=== PATIENT | female | born 1950 | race Caucasian/White ===

== ENCOUNTER 2019-07-28 23:32 | Emergency (ER) | payer MEDICARE, SELFPAY ==
[2019-07-28 23:37] VITALS: PULSE 95; RESP 24; O2SAT 95; BMI 25.9
--- NOTE | 2019-07-29 00:21 | CTR_ITS ---
PROCEDURE INFORMATION: Exam: CT Abdomen And Pelvis Without Contrast Exam date and time: 07/29/2019 12:25 AM Age: 69 years old Clinical indication: Abdominal pain; Generalized; Prior surgery; Surgery type: Hysterectomy; Additional info: Ruq pain TECHNIQUE: Imaging protocol: Computed tomography of the abdomen and pelvis without contrast. Radiation optimization: All CT scans at this facility use at least one of these dose optimization techniques: automated exposure control; mA and/or kV adjustment per patient size (includes targeted exams where dose is matched to clinical indication); or iterative reconstruction. COMPARISON: No relevant prior studies available. RADIATION DOSE METRICS: Total DLP: 672.14 mGy-cm FINDINGS: Lungs: Some consolidation and air bronchograms are seen in the right lung base, findings compatible with chronic atelectasis. Some strandy opacities are present in the left lung base most probably representing atelectasis versus parenchymal or pleural scarring. Liver: Normal. No mass. Gallbladder and bile ducts: Normal. No calcified stones. No ductal dilation. Pancreas: There are strandy opacities surrounding the pancreas compatible with inflammatory changes and pancreatitis. Spleen: Normal. No splenomegaly. Adrenals: Normal. No mass. Kidneys and ureters: There is marked right renal atrophy. A 1 cm hypoattenuation simple appearing cyst is seen on the atrophic right kidney. A 2nd 1.4 cm simple appearing cyst is seen within the atrophic right kidney as well. Stomach and bowel: Diverticula are present on the descending and sigmoid colon. There are no inflammatory changes present to suggest diverticulitis. Appendix: No evidence of appendicitis. Intraperitoneal space: Unremarkable. No free air. No significant fluid collection. Vasculature: Calcifications are seen within the thoracic and abdominal aorta, iliac arteries bilaterally Postoperative changes are again seen within the heavily calcified distal abdominal aorta. Lymph nodes: Unremarkable. No enlarged lymph nodes. Bladder: Unremarkable as visualized. Reproductive: Status post hysterectomy. Bones/joints: Unremarkable. No acute fracture. Soft tissues: Unremarkable. CT/CT abdomen pelvis wo con [id number] IMPRESSION: 1. Diffuse inflammatory changes surround the pancreas compatible with pancreatitis. 2. Diverticulosis of the descending and sigmoid colon 3. Marked right renal atrophy. Two simple appearing cysts are seen within the atrophic right kidney, the largest measuring 1.4 cm. No further workup needed. 4. Probable chronic right basilar atelectasis. COMMENTS: Consistent with the [employer]'s Incidental Findings Committee white paper (J Am Alona Radiol 2018): Any incidental renal lesion less than 1.0 cm or classified as too small to characterize, or any incidental cystic renal lesion characterized as simple-appearing, is likely benign. No follow-up imaging is recommended for these lesions per consensus recommendations based on imaging criteria. Radiation Dose CTDIVOL = (mGy): DLP = 672.14 (mGy-cm)
[2019-07-29 00:49] LABS: Basophils % 0.3 %; Eosinophils # 0.2 10^3/uL (0.0-0.8); Eosinophils % 1.2 %; Hematocrit 42.8 % (37.0-47.0); Hemoglobin 14.2 g/dL (11.5-15.3); Lymphocytes # 1.5 10^3/uL (0.8-4.8); Lymphocytes % 11.3 %; Mean Corpuscular HGB Conc 33.2 g/dL (30.0-36.0); Mean Corpuscular Hemoglobin 28.1 pg (28.0-34.0); Mean Corpuscular Volume 84.6 fL (81-99); Mean Platelet Volume 9.9 fL (7.4-10.4); Monocytes # 0.6 10^3/uL (0.2-0.9); Monocytes % 4.5 %; Neutrophils # 11.1 10^3/uL (1.8-7.7); Neutrophils % 82.1 %; Nucleated Red Blood Cells % 0 %; Platelet Count 274 10^3/cmm (130-400); Red Blood Count 5.06 10^6/uL (4.1-5.3); Red Cell Distribution Width 13.6 % (12.1-15.1); White Blood Count 13.5 10^3/uL (4.0-10.0)
[2019-07-29 01:03] LABS: Alanine Aminotransferase 186 U/L (0-33); Albumin Level 4.6 g/dL (3.5-5.2); Alkaline Phosphatase 292 IU/L (35-105); Anion Gap 20.4 (5-19); Aspartate Amino Transferase 443 U/L (0-32); Blood Urea Nitrogen 15 mg/dL (8-23); Calcium 10.3 mg/dL (8.5-10.5); Carbon Dioxide 24 mmol/L (22-29); Chloride 100 mmol/L (98-107); Globulin 2.7 g/dL (1.3-4.6); Glomerular Filtration Rate 49.5 mL/min (90-130); Glucose 237 mg/dL (65-115); Osmolality Calculated 296 mOsm/kg (285-295); Potassium 3.4 mmol/L (3.5-5.1); Sodium 141 mmol/L (136-145); Total Bilirubin 1.1 mg/dL (0.15-1.2); Total Protein 7.3 g/dL (6.6-8.7)
[2019-07-29] MEDS: ondansetron 2 mg/ML SDV 2 mL 4 MG IVP (01:05)
--- NOTE | 2019-07-29 01:14 | PC.NURSE ---
pt requesting to hold on pain medication until effects of zofran has taken effect. Pt also states she is pain free after vomiting. Dr puri
[2019-07-29 01:37] LABS: C Reactive Protein 6.6 mg/L (0.0-4.9)
--- NOTE | 2019-07-29 02:11 | USR_ITS ---
PROCEDURE INFORMATION: Exam: US Abdomen Limited, Right Upper Quadrant Exam date and time: 07/29/2019 2:57 AM Age: 69 years old Clinical indication: Abdominal pain; Prior surgery; Surgery date: 6+ months; Surgery type: Patient states she had aorta surgery. ; Additional info: Ruq pain, elevated liver enzymes TECHNIQUE: Imaging protocol: Real-time ultrasound of the abdomen with image documentation. Examination was focused on the right upper quadrant. COMPARISON: CT abdomen pelvis con [id number] 07/29/2019 1:36 AM FINDINGS: Liver: Normal. No masses. Gallbladder: The multiple hyperdensities are present within the gallbladder compatible with small gallstones. Common bile duct: Normal. No stones. No dilation. Pancreas: Visualized pancreas is unremarkable. Right kidney: Normal. No mass. No hydronephrosis. Intraperitoneal space: There is extreme epigastric pain. US/US gall bladder [id number] IMPRESSION: Multiple small gallstones and extreme epigastric pain could represent gallstone cholecystitis.
[2019-07-29 02:17] LABS: Add Urine Microscopic? NO
[2019-07-29 02:25] LABS: Bilirubin Urine Neg (NEGATIVE); Blood Urine Neg (Negative); Glucose Urine UA Norm (Normal); Ketones Urine Negative (Negative); Leukocyte Esterase Urine Negative (Negative); Nitrate Urine Negative (Negative); Protein Urine Neg (Negative); Urine Appearance Clear (CLEAR); Urine Color Yellow (Yellow); Urobilinogen Urine Norm (Negative); pH Urine 5 (5-7)
[2019-07-29 03:40] VITALS: RESP 20; O2SAT 100
[2019-07-29] MEDS: fentaNYL 50 mcg/mL INJ 2mL IVP (03:40)
[2019-07-29] MEDS: ketorolac 30 mg/mL INJ IVP (03:45)
--- NOTE | 2019-07-29 03:45 | W.ED.ABDPA2 ---
HPI - Abdominal Pain General: Chief Complaint: Abdominal Pain Stated Complaint: n/v Time Seen by Provider: 07/29/19 00:23 History of Present Illness: HPI narrative: 69-year-old female presents from home with epigastric and right upper quadrant pain. She has had several episodes of vomiting. She has had a couple of episodes of loose stool. No fever. No blood in the vomitus or stool. She states that she still has a gallbladder. Pain started this evening. She last ate around 1 PM. Family members ate the same food without symptoms. MD elicited complaint: abdominal pain Onset (ago): hour(s) Pain Consistency: constant Location: Epigastric and RUQ Severity: severe Quality: cramping and aching Radiation: RUQ and epigastric Migration to: no migration Exacerbating factors: movement Relieving factors: nothing Associated Symptoms: Reports chills, diarrhea, nausea and vomiting; Denies dysuria, fever(s), hematochezia and hematuria Review of Systems Const: Reports: chills; Denies: fever(s) Eyes: Denies: change in vision ENMT: Denies: swelling of lips/tongue, change in hearing, post nasal drip or sinus pain Card: Denies: chest pain, palpitations or irregular heart rhythm Resp: Denies: dyspnea, productive cough, non-productive cough or wheezing GI: Reports: nausea, vomiting and diarrhea; Denies: hematochezia : Denies: dysuria, urinary frequency, urinary urgency or hematuria Musc: Denies: neck pain, back pain or joint redness Skin/Breast: Denies: rash, pruritus or erythema Neuro: Denies: headache(s), dizziness or vertigo Psych: Denies: anxiety PFSH ED PFSH: Medical History Carotid stenosis Chronic diarrhea Dyspareunia in female Not responding to replens--- She did very well with the speculum and bimanual exam today No evidence of BV, the we discussed the relationship between bacterial overgrowth and post menopause. We also discussed the role that estrogen plays on the vaginal tissues which provides the tissue with elasticity. We discussed that after menopause the tissues will decline in their elasticity and leave them rigid yet very fragile and intercourse can cause microscopic tearing. Usual course of treatment discussed;she was encouraged to give this a good 3 month trial as it does take generally 12 weeks of therapy before any real improvement is noted. Continue with Estrace with change in directions----> ESTRACE 1 gram in the vagina twice a week--- space out doses use COCONUT OIL as a lubricant--- any time you will be sexually active Gout Hypercholesteremia Hypertension Peripheral arterial disease Recurrent UTI Single kidney Statin intolerance Surgical History History of colonoscopy normal History of hysterectomy YOHANA/BSO--performed in [place] due to bleeding issues S/P PDA repair Family History Father at early age of unknown cause Mother Melanoma Denies family history of Anesthesia complication Bleeding disorder Social History Smoking and tobacco status: never smoked Alcohol intake: never Household members: spouse Marital status: Current occupational status: retired Physical Exam Const: GENERAL APPEARANCE: well developed ORIENTATION/CONSCIOUSNESS: Yes oriented to person, Yes oriented to place and Yes oriented to time HENMT: COMMON NORMALS: normocephalic, external ears normal and Normal external nose present HEAD & SCALP: normocephalic; no scalp tenderness FACE & SINUS: normal facial exam NOSE: Normal external nose present and No nasal discharge present EXTERNAL EAR: Yes external ears normal MOUTH: tongue normal TEETH & GINGIVA: no abnormal tooth and associated gingiva THROAT: posterior oropharynx normal; no peritonsillar mass Eye: COMMON NORMALS: Equal, round and reactive pupils present, EOMs intact bilaterally and conjunctivae normal EYELID: eyelids normal CONJUNCTIVA: Yes conjunctivae normal PUPIL: Yes Equal, round and reactive pupils present Neck/C-Spine: COMMON NORMALS: full ROM GENERAL: No tracheal deviation Chest: COMMONS NORMALS: normal inspection of the chest CHEST: No tenderness Resp: COMMON NORMALS: clear to auscultation bilaterally EFFORT & INSPECTION: No tachypneic, No respiratory distress, No retractions, No uses accessory muscles and No tracheal deviation AUSCULTATION: clear to auscultation bilaterally, no rhonchi, no wheezes and lung sounds not diminished Cardio: COMMON NORMALS: regular rate and regular rhythm RATE: regular rate RHYTHM: regular rhythm HEART SOUNDS: no murmurs PERIPHERAL PULSES: radial pulses present GI: INSPECTION: No abdominal distension AUSCULTATION: No Hyperactive bowel sounds present and No Hypoactive bowel sounds present PALPATION: Yes Tenderness to palpation present (GI) Details: RUQ, Yes Guarding due to palpation present (GI) and No Rigid due to palpation PERCUSSION: no dullness to percussion and no tympanic to percussion : COMMON NORMALS: Yes no CVA tenderness BLADDER/KIDNEY EXAM: Yes no CVA tenderness Back/Pelvis: COMMON NORMALS: no CVA tenderness Neuro: SENSORIUM/ORIENTATION: Yes oriented to person, Yes oriented to place and Yes oriented to time Psych: COMMON NORMALS: mental status grossly normal Skin: COMMON NORMALS: no rashes or lesions noted GENERAL SKIN EXAM: no rashes or lesions noted Course Vital Signs: Vital signs: Vital Signs Pulse Rate 95 07/28/19 23:37 Respiratory Rate 20 H 07/29/19 03:40 Pulse Oximetry 100 07/29/19 03:40 MDM - Abdominal Pain MDM Narrative: Medical decision making narrative: Epigastric and right upper quadrant pain in a 69-year-old female with a leukocytosis of 13.5, mild to moderate elevation in her liver enzymes, and a lipase of greater than 19,000. CT scan shows a normal-appearing gallbladder with normal bile ducts. Ultrasound shows some tiny gallstones, but again with no definite wall thickening and no definite ductal dilatation. She is gotten some fluid, pain medication and antiemetic, and is feeling better. Spoke to my hospitalist. With this type of lipase elevation, with questionable gallbladder findings, feel that GI consultation is needed for possible MRCP versus ERCP. Spoke with [facility] in [facility], they will take in transfer to their emergency department to further triage which service the patient should go to. Lab Data: Labs: Lab Results 07/29/19 07/29/19 07/29/19 Range/Units 00:37 00:37 01:45 WBC 13.5 H (4.0-10.0) 10^3/ uL RBC 5.06 (4.1-5.3) 10^6/u L Hgb 14.2 (11.5-15.3) g/dL Hct 42.8 (37.0-47.0) % MCV 84.6 (81-99) fL MCH 28.1 (28.0-34.0) pg MCHC 33.2 (30.0-36.0) g/dL RDW 13.6 (12.1-15.1) % Plt Count 274 (130-400) 10^3/c mm MPV 9.9 (7.4-10.4) fL Neut % (Auto) 82.1 % Lymph % (Auto) 11.3 % [place] % (Auto) 4.5 % Eos % (Auto) 1.2 % Baso % (Auto) 0.3 % Neut # (Auto) 11.1 H (1.8-7.7) 10^3/u L Lymph # (Auto) 1.5 (0.8-4.8) 10^3/u L [place] # (Auto) 0.6 (0.2-0.9) 10^3/u L Eos # (Auto) 0.2 (0.0-0.8) 10^3/u L Baso # (Auto) 0.0 (0.0-0.1) 10^3/u L Nucleated RBC % (a uto) 0 % Nucleated RBCs # 0.0 /100WBC Sodium 141 (136-145) mmol/L Potassium 3.4 L (3.5-5.1) mmol/L Chloride 100 (98-107) mmol/L Carbon Dioxide 24 (22-29) mmol/L Anion Gap 20.4 H (5-19) BUN 15 (8-23) mg/dL Creatinine 1.1 H (0.5-0.9) mg/dL GFR Calculation 49.5 L (90-130) mL/min Glucose 237 H (65-115) mg/dL Calculated Osmolal ity 296 H (285-295) mOsm/k g Calcium 10.3 (8.5-10.5) mg/dL Total Bilirubin 1.1 (0.15-1.2) mg/dL AST 443 H (0-32) U/L ALT 186 H (0-33) U/L Alkaline Phosphata se 292 H (35-105) IU/L C-Reactive Protein 6.6 H (0.0-4.9) mg/L Total Protein 7.3 (6.6-8.7) g/dL Albumin 4.6 (3.5-5.2) g/dL Globulin 2.7 (1.3-4.6) g/dL Lipase > 11803 H (13-60) U/L Urine Color Yellow (Yellow) Urine Appearance Clear (CLEAR) Urine pH 5 (5-7) Ur Specific Gravit y 1.010 (1.005-1.030) Urine Protein Neg (Negative) Urine Glucose (UA) Norm (Normal) Urine Ketones Negative (Negative) Urine Blood Neg (Negative) Urine Nitrate Negative (Negative) Urine Bilirubin Neg (NEGATIVE) Urine Urobilinogen Norm (Negative) mg/dL Ur Leukocyte Orly ase Negative (Negative) Discharge Plan Discharge Prescriptions: No Action escitalopram oxalate [Lexapro] 10 mg tablet 10 mg PO QDAY RF: 0 Symbicort 160-4.5 mcg/actuation HFA aerosol inhaler 1 puff INHALATION BID RF: 0 montelukast 10 mg tablet 10 mg PO QDAY RF: 0 valsartan [Diovan] 160 mg tablet 160 mg PO BID RF: 0 nitrofurantoin macrocrystal 100 mg capsule 100 mg PO BID RF: 0 cilostazol 100 mg tablet 100 mg PO BID RF: 0 omeprazole 20 mg capsule,delayed release(DR/EC) 20 mg PO QDAY RF: 0 amlodipine 5 mg tablet 5 mg PO QDAY RF: 0 albuterol sulfate 2.5 mg /3 mL (0.083 %) solution for nebulization 2.5 mg INHALATION Q4H PRNRF: 0 cholesterol wellness complex PO RF: 0 fluticasone propionate 50 mcg/actuation spray,suspension 1 spray INTRANASAL QDAY RF: 0 cholecalciferol (vitamin D3) 2,000 unit tablet 2,000 unit PO QDAY RF: 0 asenapine maleate SUBLINGUAL RF: 0 aspirin 81 mg tablet,delayed release (DR/EC) 81 mg PO QDAY RF: 0 mirtazapine 15 mg tablet 7.5 mg PO ONCE 30 Days Qty: 15 RF: 1 metoprolol tartrate 75 mg tablet 75 mg PO BID 90 Days Qty: 180 RF: 3 Coding Level of Care Code ED Cook [place] for Chg Fwd Exam Comprehensive
[2019-07-29] MEDS: sodium chloride 0.9% 1,000 ML 999 ML IV (04:05)
--- NOTE | 2019-07-29 05:44 | PC.NURSE ---
Addendum entered by Sasha Vega 07/29/19 05:45: Dr notified. Pt sats improving to 95-96% on 2lpm. Pt resting comfortably Original Note: pt placed on 2lpm O2 via nasal cannula due to sats dropping and maintaining 88-90% on R/A.
[2019-07-29 06:08] VITALS: BP 168/90; PULSE 72; RESP 16; O2SAT 96
== END 2019-07-29 06:11 ==
PROVIDERS: Physician Assistant; Emergency Provider Emergency Medicine; PCP Internal Medicine
DX: R10.9 Unspecified abdominal pain (principal); Z79.82 Long term (current) use of aspirin; I10 Essential (primary) hypertension; Z87.440 Personal history of urinary (tract) infections
CPT/HCPCS: 12345; 74176; 76705; 80053; 81001; 81003; 83690; 85025; 86140; 96361; 96374; 96375; 99282; 99285; J1885; J2405; J3010; J7030

== ENCOUNTER → 2020-07-29 08:09 | Outpatient (BNVA) | payer MEDICARE, SELFPAY | PROVIDERS: PCP Internal Medicine; Visit Provider Urology | DX: N39.0 Urinary tract infection, site not specified (principal) | CPT/HCPCS: 81003; 87086 ==

== ENCOUNTER → 2021-07-29 08:04 | Outpatient (BNVA) | payer MEDICARE, SELFPAY | PROVIDERS: PCP Internal Medicine; Visit Provider Urology | DX: N39.0 Urinary tract infection, site not specified (principal) | CPT/HCPCS: 81003; 87086; 99213 ==

== ENCOUNTER 2021-09-03 09:29 | Outpatient (CLI) | payer MEDICARE, SELFPAY ==
--- NOTE | 2021-09-03 09:34 | MM_ITS ---
WS: [id number] BILATERAL SCREENING DIGITAL BREAST TOMOSYNTHESIS MAMMOGRAM WITH CAD HISTORY: SCREEN COMPARISON: 08/24/2018, 11/23/2012 and 12/10/2009 Bilateral CC and MLO views with tomosynthesis and synthetic mammography submitted. Computer aided det ection analyzed. Breast composition: The breasts are heterogeneously dense, which may obscure small masses. No suspici ous masses, microcalcifications or architectural distortion. Bilateral partially obscured masses and asymmetries are stable. MM/[place] [id number] IMPRESSION: BI-RADS: 2-Benign FOLLOW UP: 1 Year Follow-up
== END 2021-09-03 09:30 | disposition home or self-care (01) ==
LOC: RAD 09:29
PROVIDERS: PCP Internal Medicine; Visit Provider Family Medicine
DX: Z12.31 Encounter for screening mammogram for malignant neoplasm of breast (principal)
CPT/HCPCS: 77063; 77067

== ENCOUNTER 2021-11-10 12:52 | Outpatient (CLI) | payer MEDICARE, SELFPAY ==
--- NOTE | 2021-11-10 13:28 | XR_ITS ---
WS: [id number] Exam: XR foot RT min 3V* [id number] Date/Time of Exam: 11/10/2021 1:29 PM Reason For Exam: R FOOT PAIN X 3 DAYS No fracture or dislocation noted. Mild DJD at the first MP joint. No soft tissue foreign bodies are s een. Large posterior calcaneal spur. XR/XR foot RT min 3V* [id number] IMPRESSION: 1. Minimal degenerative change. No fracture or dislocation. 2. Large posterior heel spur.
== END 2021-11-10 12:53 | disposition home or self-care (01) ==
LOC: RAD 12:54
PROVIDERS: PCP Internal Medicine; Visit Provider Family Medicine
DX: M79.671 Pain in right foot (principal); M77.9 Enthesopathy, unspecified
CPT/HCPCS: 73630

== ENCOUNTER 2022-01-15 14:16 | Outpatient (CLI) | payer MEDICARE, SELFPAY ==
--- NOTE | 2022-01-15 14:52 | XRR_ITS ---
PROCEDURE INFORMATION: Exam: XR Sacrum and Coccyx, 2 or More Views Exam date and time: 01/15/2022 3:13 PM Age: 71 years old Clinical indication: Pain in coccyx area; Patient HX: PT fell 1 year ago. Injuring tailbone. Still having a lot of pain. Usually at 6-8 pain level. Pain is getting worse. ; Additional info: Coccydynia TECHNIQUE: Imaging protocol: XR of the sacrum and coccyx, 2 or more views. COMPARISON: CT abdomen pelvis [facility] [id number] 07/29/2019 1:36 AM FINDINGS: Bones/joints: Normal. No acute fracture. Soft tissues: Normal. XR/XR sacrum coccyx min 2V [id number] IMPRESSION: No acute findings. If there is desire for further evaluation, a CT scan could be performed.
== END 2022-01-15 14:17 | disposition home or self-care (01) ==
PROVIDERS: PCP Internal Medicine; Visit Provider Family Medicine
DX: M53.3 Sacrococcygeal disorders, not elsewhere classified (principal)
CPT/HCPCS: 72220

== ENCOUNTER → 2023-10-06 14:30 | Outpatient (BNVA) | payer MEDICARE, SELFPAY | PROVIDERS: PCP Internal Medicine; Visit Provider Family Medicine | DX: I10 Essential (primary) hypertension (principal); E78.00 Pure hypercholesterolemia, unspecified | CPT/HCPCS: 80053; 80061; 83721 ==

== ENCOUNTER → 2024-04-14 12:47 | Outpatient (BNVA) | payer MEDICARE, SELFPAY | PROVIDERS: PCP Family Medicine; Visit Provider Family Medicine | DX: R30.0 Dysuria (principal); N39.0 Urinary tract infection, site not specified | CPT/HCPCS: 81000; 87086 ==

== ENCOUNTER → 2024-08-28 12:35 | Outpatient (BNVA) | payer MEDICARE, SELFPAY | PROVIDERS: PCP Family Medicine; Visit Provider Family Medicine | DX: G62.9 Polyneuropathy, unspecified (principal); F33.9 Major depressive disorder, recurrent, unspecified | CPT/HCPCS: 80053; 82607; 82746; 84443 ==